=== PATIENT | female | born 1945 | race Caucasian/White ===

== ENCOUNTER 2023-05-04 16:14 | Emergency (ER) | payer OTHER, SELFPAY ==
[2023-05-04 16:32] VITALS: BP 132/68
[2023-05-04 19:29] VITALS: BP 145/59
--- NOTE | 2023-05-05 00:16 | ED.GENMED ---
History of Present Illness
General
Chief Complaint: DVT/Possible Blood Clot
Source: patient
Exam Limitations: none
Time Seen by Provider: 05/04/23 17:45
Nursing documentation reviewed up to this point in time: agreed with
Travel History
Have you had any contact with someone who has COVID-19?: No
Do you have any symptoms of coronavirus? Fever > 100 degrees, chills, cough, shortness of breath, sore throat, loss of taste or smell, muscle aches, or headache?: No
History of Present Illness
History of Present Illness:
Patient to ED with complaint of pain and swelling to Right posteerior knee. States she woke this AM with symptoms. No history of trauma. States she has had pain to this knee before but does not want to follow up with orthopedics because she does
not want a joint replacement. Seen at today, sent to ED to r/o DVT. No prior history of DVT. No other complaints
Past History
Past History
ED Past Medical History: GERD, HTN, Hypothyroidism and Other (Lumbar disc disease, GERD, Graves' disease status post I-131, kidney stones)
Social History
Tobacco: Non-smoker
Alcohol: None
Family History
Family History: Negative Diabetes, Hypertension or CAD
Review of Systems
Review of Systems
Allergies reviewed?: Yes
All Other Systems: ROS reviewed and negative except as documented in HPI and ROS
Constitutional: Reports no symptoms
Musculoskeletal: Reports joint pain (Pain and swelling to right posterior knee)
Skin: Reports no symptoms
Neurological: Reports no symptoms
Psychiatric: Reports no symptoms
Phy Exam
General Physical Exam
General Presentation: well appearing and mild distress
General age: appears stated age
General Skin: warm and dry
General Habitus: normal
General Mental: alert
Musculoskeletal Exam
Musculoskeletal Exam: neuro vasc intact and other (pain and swelling to knee. Limited ROM due to pain. No erythema. Neurovascularly intact.)
Skin Exam
Skin Exam: normal color, warm/dry and no rash
Psychiatric Exam
Psychiatric Exam: normal mood/affect
Course
Orders/Labs/Results
Orders:
Orders
05/04/23 16:35
US Periph Venous LOWER Ext RT Urgent
Comment:
Reason For Exam: swelling
Vital Signs
Initial and Last Documented VS:
Initial Vital Signs
Temp Pulse Resp BP Pulse Ox
98.0 F 69 16 132/68 96
05/04/23 16:32 05/04/23 16:32 05/04/23 16:32 05/04/23 16:32 05/04/23 16:32
Last Documented Vital Signs
Temp Pulse Resp BP Pulse Ox
98.1 F 69 16 145/59 95
05/04/23 19:29 05/04/23 19:29 05/04/23 19:29 05/04/23 19:29 05/04/23 19:29
*Radiology
Radiology exam reviewed: radiology read reviewed
*Pulse Oximetry
Patient hypoxic: no
*Critical Care Note
Total Time (30-74mins, 75-104mins- exclusive of procedures): Not Applicable
Update Note
Update Note:
US report discussed with patient. No evidence of DVT. Will discharge home. ENcouraged follow up with ortho.
ED Attending Note
-
Portions of this chart may have been created with voice recognition software.� Occasional wrong word or��sound alike� substitutions may have occurred due to the inherent limitations of voice recognition software.
Discharge Plan
Departure
Patient Disposition: Home (Routine Discharge)
Date of Disposition: 05/04/23
Time of Disposition: 19:12
Patient with high blood pressure during this ER visit?: No
Condition: Good
Covid-19: Not Applicable
Discharge Problem:
Knee pain
Instructions: Knee pain, RICE Therapy
Prescriptions:
No Action
aluminum hydrox-magnesium carb [Acid Gone Antacid] 15 ML suspension
15 ml PO HSPRN PRN (Reason: gastrointestinal issue)
metformin 500 MG tablet
500 mg PO DAILY
fluticasone propionate 1 SPRAY spray,suspension
1 spray intranasal DAILYPRN PRN (Reason: allergies/post nasal drip)
levothyroxine 112 MCG tablet
112 mcg PO DAILY
rosuvastatin 5 MG tablet
2.5 mg PO Q48H
Patient Comments:
03/04/2020: Prescribed as 3x weekly, pt states takes every other day.
Nyquil Liquid
30 ml PO HSPRN PRN (Reason: cough)
Turmeric
2 tab PO DAILY
metoprolol succinate 12.5 MG tablet extended release 24 hr
12.5 mg PO DAILY Qty: 30 0RF
lisinopril 2.5 MG tablet
2.5 mg PO DAILY Qty: 30 0RF
furosemide [Lasix] 40 MG tablet
40 mg PO DAILY Qty: 30 0RF
Referrals:
Merlyn Hart MD [Family Provider] - Follow up in 2-3 days
Marco Antonio Jewell MD [Active] - Next open appointment
Interventions
Interventions:
*Risk Screen - Suicide Last Done: 05/04/23 18:14
*General Assessment Last Done: 05/04/23 16:32
*Neglect/Abuse Screening Last Done: 05/04/23 18:14
ED- Fall Risk Assessment Last Done: 05/04/23 19:31
*ED COVID-19 Vaccine History Last Done: 05/04/23 16:32
*Nursing Disposition Last Done: 05/04/23 19:30
ED- Cardiac Assessment Last Done: 05/04/23 18:15
ED- Pulmonary Assessment Last Done: 05/04/23 18:15
ED-Peripheral Vascular Assessment Last Done: 05/04/23 18:15
ED-Skin Assessment Last Done: 05/04/23 18:15
Discharge Date and Time
Discharge Date/Time: 05/04/23 19:31
Musculoskeletal Injury Exam
Musculoskeletal Injury Exam
Right Knee:
Pain with Movement?: Moderate
Soft tissue swelling?: Moderate
External deformity and angulation?: None
Joint effusion?: None
Contusion?: None
Strain- Sprain- Tear (Connective tissue injury)?: None
Crepitus with movement?: No
Joint instability?: No
Malalignment/deformity?: No
Range of motion: Limited
Distal skin color and temperature: normal-warm & good color
Capillary Refill: normal
Normal distal neurovascular exam?: Yes
Peripheral Pulses: posterior tibial (right): 3+ and dorsalis pedis (right): 3+
== END 2023-05-04 19:31 | disposition home or self-care (01) ==
LOC: EMR 16:14
PROVIDERS: EMERGENCY PHYSICIAN Emergency Medicine; FAMILY PHYSICIAN Family Medicine
DX: M25.562 Pain in left knee (principal); K21.9 Gastro-esophageal reflux disease without esophagitis; I10 Essential (primary) hypertension; E03.9 Hypothyroidism, unspecified; E05.00 Thyrotoxicosis with diffuse goiter without thyrotoxic crisis or storm; Z87.442 Personal history of urinary calculi
CPT/HCPCS: 99284; 93971

== ENCOUNTER 2024-05-02 08:51 | Emergency (ER) | payer OTHER, SELFPAY ==
[2024-05-02 08:57] VITALS: BP 158/73
--- NOTE | 2024-05-02 10:10 | EDRN ---
Laurie Sutton PA in room w/pt.
--- NOTE | 2024-05-02 10:19 | ED.GENMED ---
History of Present Illness
General
Chief Complaint: Cough
Source: patient
Time Seen by Provider: 05/02/24 10:07
History of Present Illness
History of Present Illness:
78-year-old female with past medical history of CHF, hyperlipidemia, [id number] diabetes, GERD presenting to the emergency department for evaluation of an ongoing cough for the last week that has been progressively worsening and over the
last 2 days has not even been able to tolerate her CPAP machine due to the persistent coughing. Patient did go to her primary care provider earlier in the week and was given a prescription for an antibiotic as well as an inhaler however the patient
states she did not feel as if her symptoms were related to an infection so decided to not take the antibiotic but has been using the inhaler only with minimal relief. Patient is not aware of any fevers, chills, rigors, chest pain, abdominal pain,
nausea or vomiting. She does report orthopnea however that this is chronic for her and ongoing for longer than she has had the coughing as well as lower extremity edema bilaterally and exertional dyspnea. Patient is unsure of any weight gain as
she notes she has does not check her weight very often. Denies any recent travel or recent surgeries.
Past History
Past History
ED Past Medical History: CHF, GERD, HTN, Hypercholesterolemia, NIDDM, Hypothyroidism and Other (Lumbar disc disease, GERD, Graves' disease status post I-131, kidney stones)
Social History
Tobacco: Non-smoker
Alcohol: None
Drug: None
Personal:
Living: with family
Family History
Family History: Negative Diabetes, Hypertension or CAD
Review of Systems
Review of Systems
All Other Systems: ROS reviewed and negative except as documented in HPI and ROS
Phy Exam
Physical Exam
Physical Exam:
GENERAL: Alert , in no apparent distress, intermittent nonproductive cough throughout the exam, overweight
HEAD: NCAT
EYE: Clear conjunctiva
NECK: Supple
ENT: o/p clr, mmm.
CARDIAC: Regular rate and rhythm, faint systolic murmur left second intercostal space.
LUNGS: Scattered end expiratory phase wheeze anterior and posterior lung macias, Rales right base, no accessory muscle use. Pulse ox between 92 and 98% room air
ABDOMEN: Soft, without focal tenderness, no r/g, no cvat
NEUROLOGICAL: Alert and oriented
SKIN: Warm and dry, skin intact.
MUSCULOSKELETAL: Nonpitting bilateral lower extremity edema to the knees, well perfused.
PSYCH: Normal and appropriate interaction.
Scores
Heart Failure Risk
Heart Failure Risk Score: Yes
History of Stroke or TIA: No
History of intubation for respiratory distress: No
Heart rate on ED arrival >/= 110: No
SaO2 <90% on arrival on room air: No
HR >/=110 during 3min walk test (or too ill to perform test): No
ECG has acute ischemic changes: No
Urea >/=12mmol/L (BUN 33.6mg/dL): No
Serum CO2>/=35mmol/L: No
Troponin I or T elevated to [place] Level (0.4mg/dL): No
NT-proBNP >/=5,000ng/L (5,000pg/ml): No
HF Risk Score: 0
Admission Status: LOW RISK 2.8% Consider discharge to home with f/u visit to PCP/Thermal [facility]
Heart Score for Chest Pain Patients
STEMI patient?: Not applicable
Withdrawal Assessment of Alcohol
Withdrawal Assessment Completed?: Not applicable
Course
Orders/Labs/Results
Orders:
Orders
05/02/24 10:16
Electrocardiogram (*1) Urgent
Reason for Study: Shortness of Breath
EKG- Treatment ONCE
Ipratropium/Albuterol Sulfate [Duoneb] 3 ml INH R NOW ONE
MethylPREDNISolone PF [Solu-Medrol Pf] 60 mg IV NOW STA
CR Chest - 2 Views Urgent
Comment:
Reason For Exam: SOB, cough
05/02/24 10:35
Complete Blood Count/With Diff Urgent
Comprehensive Metabolic Panel Urgent
NT-proBNP Urgent
Troponin I Urgent
05/02/24 10:37
COVID-19 Antigen Urgent
Source: Nasal Swab
Influenza A+B Rapid Molecular Urgent
CRISTIANE Source: Nasal Swab
Specimen Description:
Abnormal Lab Results
05/02/24
10:35
WBC 4.5 L 10^3/uL
(4.8-10.8)
MCH 32.0 H pg
(27.0-31.0)
Absolute Lymphs (auto) 0.9 L 10^3/uL
(1.2-3.4)
Monocytes % 12.5 H %
(1.7-9.3)
Sodium 134 L mmol/L
(135-145)
Chloride 93 L mmol/L
(98-107)
Carbon Dioxide 33 H mmol/L
(22-30)
Glucose 114 H mg/dl
(70-99)
AST 102 H U/L
(14-36)
ALT 116 H U/L
(0-35)
05/02/24 10:35
05/02/24 10:35
Vital Signs
Initial and Last Documented VS:
Initial Vital Signs
Temp Pulse Resp BP Pulse Ox
98.0 F 75 16 158/73 98
05/02/24 08:57 05/02/24 08:57 05/02/24 08:57 05/02/24 08:57 05/02/24 08:57
Last Documented Vital Signs
Temp Pulse Resp BP Pulse Ox
98.0 F 66 15 142/61 93
05/02/24 08:57 05/02/24 11:00 05/02/24 11:00 05/02/24 11:05/02/24 11:00
MDM/Problems Addressed
Differential Diagnosis Includes:
Asthma, COPD, CHF, pneumonia or other infectious etiology, BRAY[place], peripheral vascular disease, DVT/PE considered
MDM/Problems Addressed:
78-year-old female presenting the ER for evaluation of 1 week of cough, gradually worsening shortness of breath and exertional dyspnea. Over the last 2 days has gotten worse. Went to primary care earlier in the week and was given an antibiotic
which patient did not take. Patient has been using the inhaler but with minimal relief. No fevers or infectious symptoms. Hemodynamically stable and in no acute distress. Will check labs, chest x-ray, EKG. Suspect CHF versus asthmatic
bronchitis type diagnosis. Disposition pending.
*Radiology
Radiology exam reviewed: preliminary read by ED provider (cardiomegaly)
*Pulse Oximetry
Patient hypoxic: no
*EKG
Interpreted by ED Provider?: Yes
Heart Rate: 67
Rate: normal
Rhythm: sinus
[place]: right axis deviation
QRS Pattern: normal QRS
*Pit Boss Interpretation
Rate: normal
Rhythm: sinus
*Critical Care Note
Total Time (30-74mins, 75-104mins- exclusive of procedures): Not Applicable
Data Reviewed
Review of Other/Old Records Reveals: Labs, Records and Discharge Summary
Patient Management
Social determinants of health affecting care: Living situation and Strong social support
Discussion with other providers: PCP
Escalation/DeEscalation of care consider admission/obs:
Patients labs show a mild leukocytosis and AST/ALT elevation. Her flu test resulted positive which is likely reasoning behind the lab findings. CXR with stable cardiomegaly. Notified patients PCP via [employer] and she is aware of todays work up
findings. At this time patient remains stable and in NAD. Not a candidate for tamiflu. Will send Rx for robitussin. Continue supportive measures at home. Aware of return precautions to ED
ED Attending Note
-
Portions of this chart may have been created with voice recognition software.� Occasional wrong word or��sound alike� substitutions may have occurred due to the inherent limitations of voice recognition software.
Discharge Plan
Departure
Patient Disposition: Home (Routine Discharge)
Date of Disposition: 05/02/24
Time of Disposition: 11:25
Patient with high blood pressure during this ER visit?: No
Discharge Problem:
Influenza A
Instructions: Flu in adults - Discharge instructions
Prescriptions:
New
dextromethorphan-guaifenesin 10-200 mg/5 mL liquid
10 ml PO Q8H PRN (Reason: Cough) Qty: 500 0RF
No Action
aluminum hydrox-magnesium carb [Acid Gone Antacid] 15 ML suspension
15 ml PO HSPRN PRN (Reason: gastrointestinal issue)
metformin 500 MG tablet
500 mg PO DAILY
fluticasone propionate 1 SPRAY spray,suspension
1 spray intranasal DAILYPRN PRN (Reason: allergies/post nasal drip)
levothyroxine 112 MCG tablet
112 mcg PO DAILY
rosuvastatin 5 MG tablet
2.5 mg PO Q48H
Patient Comments:
03/04/2020: Prescribed as 3x weekly, pt states takes every other day.
Nyquil Liquid
30 ml PO HSPRN PRN (Reason: cough)
Turmeric
2 tab PO DAILY
metoprolol succinate 12.5 MG tablet extended release 24 hr
12.5 mg PO DAILY Qty: 30 0RF
lisinopril 2.5 MG tablet
2.5 mg PO DAILY Qty: 30 0RF
furosemide [Lasix] 40 MG tablet
40 mg PO DAILY Qty: 30 0RF
Referrals:
Merlyn Hart MD [Family Provider] -
Interventions
Interventions:
*Risk Screen - Suicide Last Done: 05/02/24 10:45
*General Assessment Last Done: 05/02/24 10:45
*Neglect/Abuse Screening Last Done: 05/02/24 10:45
ED- Fall Risk Assessment Last Done: 05/02/24 10:45
*ED COVID-19 Vaccine History Last Done: 05/02/24 10:45
ED- Pulmonary Assessment Last Done: 05/02/24 10:45
Discharge Date and Time
Print Language: GUATEMAL[place]
[2024-05-02] MEDS: SOLU-MEDROL PF 60 MG IV (10:36)
[2024-05-02 10:45] VITALS: BP 157/68; BMI 44.8
[2024-05-02] MEDS: DUONEB 3 ML INH (10:53)
[2024-05-02 11:00] VITALS: BP 142/61
[2024-05-02 11:01] LABS: Hemoglobin 13.7 g/dL (12.0-16.0); Mean Corp Hgb Conc. 34.3 g/dL (33.0-37.0); Mean Corpuscular Volume 93.5 fL (81.0-99.0); Mean Platelet Volume 9.6 fL (7.4-10.4); Platelet Count 167 10^3/uL (130-400); Red Blood Cell Count 4.28 10^6/uL (4.20-5.40); Red Cell Dist. Width 11.9 % (11.5-14.5); White Blood Cell Count 4.5 10^3/uL (4.8-10.8)
[2024-05-02 11:06] LABS: COVID-19 Antigen Negative (Negative)
[2024-05-02 11:07] LABS: ALT (SGPT) 116 U/L (0-35); AST (SGOT) 102 U/L (14-36); Albumin 4.1 g/dl (3.5-5.0); Alkaline Phosphatase 124 U/L (38-126); Blood Urea Nitrogen 17 mg/dl (7-17); Calcium 8.6 mg/dl (8.4-10.2); Carbon Dioxide 33 mmol/L (22-30); Chloride 93 mmol/L (98-107); Estimated Creatinine Clearance 70 ml/min; Glucose 114 mg/dl (70-99); Potassium 3.9 mmol/L (3.5-5.1); Sodium 134 mmol/L (135-145); Total Protein 6.6 g/dl (6.3-8.2); eGFR > 60.00
[2024-05-02 11:19] LABS: NT-proBNP 108 pg/ml; Troponin I < 0.012 ng/ml
[2024-05-02 12:20] LABS: % Basophils 0.2 % (0-2); % Eosinophils 1.1 % (0-6); % Immature Granulocytes 0.2 % (0-0.5); % Lymphocytes 20.9 % (20.5-51.1); % Monocytes 12.5 % (1.7-9.3); % Neutrophils 65.1 % (42.2-75.2); Absolute Eosinophils 0.1 10^3/uL (0-0.7); Absolute Lymphocytes 0.9 10^3/uL (1.2-3.4); Absolute Monocytes 0.6 10^3/uL (0.1-0.6); Absolute Neutrophils 2.9 10^3/uL (1.4-6.5); Nucleated Red Blood Cells % 0 %
== END 2024-05-02 12:00 | disposition home or self-care (01) ==
LOC: EMR 08:51
PROVIDERS: Physician Assistant Medical; EMERGENCY PHYSICIAN Emergency Medicine; FAMILY PHYSICIAN Family Medicine
DX: J10.1 Influenza due to other identified influenza virus with other respiratory manifestations (principal); I50.9 Heart failure, unspecified; E78.00 Pure hypercholesterolemia, unspecified; E11.9 Type 2 diabetes mellitus without complications; K21.9 Gastro-esophageal reflux disease without esophagitis
CPT/HCPCS: 99285; 96374; 94640; 71046; 80053; 83880; 84484; 85025; 87502; 87811; 93005